=== PATIENT | female | born 1955 | race Caucasian/White ===

== ENCOUNTER 2017-07-31 20:41 | Emergency (ER) | payer OTHER ==
[2017-07-31 20:59] VITALS: BP 157/95; PULSE 64; TEMP 98.4; BMI 24.2
[2017-07-31] MEDS ORDERED: FLUORESCEIN NA 1 EA STRIP ONE (21:22)
[2017-07-31] MEDS ORDERED: TETRACAINE 0.5% OPHTH SOLN 2 ML BOTTLE ONE (21:22)
--- NOTE | 2017-07-31 21:32 | PDOC ---
History of Present Illness - General History Source: Patient Exam Limitations: No Limitations - History of Present Illness Initial Comments: 07/31/17 21:36 The patient is a 61 year old kyrgyz speaking female with no significant past medical history who presents to the emergency department today with left eye pain for 3 hours. The patient states that 3 hours ago she felt like she had something in her eye. Approximately 2 hours ago the patient flushed her eye. After persistent eye pain the patient called an ambulance 1 hour after attempting to flush her eye on her own. She reports feeling like there is dirt in her eye. <Harjinder Ziegler - Last Filed: 07/31/17 21:36> - General History Source: Patient <Rafael Ramsay - Last Filed: 08/01/17 19:48> - General Chief Complaint: Eye Problem Stated Complaint: EYE PROBLEM Time Seen by Provider: 07/31/17 21:29 Past History <Harjinder Ziegler - Last Filed: 07/31/17 21:36> - Suicide/Smoking/Psychosocial Hx Smoking History: Never smoked Have you smoked in the past 12 months: No Information on smoking cessation initiated: No Hx Alcohol Use: No Drug/Substance Use Hx: No <Rafael Ramsay - Last Filed: 08/01/17 19:48> - Past Medical History Allergies/Adverse Reactions: Allergies Allergy/AdvReac Type Severity Reaction Status Date / Time No Known Allergies Allergy Verified 07/31/17 22:08 Home Medications: Ambulatory Orders NK [No Known Home Medication] 07/31/17 Review of Systems - Review of Systems Able to Perform ROS?: Yes Comments:: 07/31/17 21:36 CONSTITUTIONAL: Absent: fever, no chills, no fatigue EYES: (+) Left eye irritation ENT: Absent: ear pain, no sore throat CARDIOVASCULAR: Absent: chest pain, no palpitations RESPIRATORY: Absent: cough, no SOB GI: Absent: abdominal pain, no nausea, no vomiting, no constipation, no diarrhea GENITOURINARY: Absent: dysuria, no frequency, no hematuria MUSCULOSKELETAL: Absent: back pain, no arthralgia, no myalgia SKIN: Absent: rash <Harjinder Ziegler - Last Filed: 07/31/17 21:36> *Physical Exam - Vital Signs Last Vital Signs Temp Pulse Resp BP Pulse Ox 98.4 F 64 20 157/95 96 07/31/17 20:47 07/31/17 20:47 07/31/17 20:47 07/31/17 20:47 07/31/17 20:47 - Physical Exam Comments: 07/31/17 21:36 GENERAL: Well-appearing, well-nourished. No apparent distress. HEENT: Normocephalic, atraumatic. PERRL, EOM intact. No fluorescein uptake, no chemosis , no erythema, no subconjunctival hemorrhage, no cell and flare, no foreign body seen CARDIOVASCULAR: Normal S1, S2. Regular rate and rhythm. PULMONARY: Clear to auscultation bilaterally. ABDOMEN: Soft, non-distended, non-tender. EXTREMITIES: Normal ROM in all four extremities. No gross deformities. SKIN: Warm, dry. No rash NEUROLOGICAL: No focal neurological deficits. <Harjinder Ziegler - Last Filed: 07/31/17 21:36> - Vital Signs Last Vital Signs Temp Pulse Resp BP Pulse Ox 98.4 F 64 20 157/95 96 07/31/17 20:47 07/31/17 20:47 07/31/17 20:47 07/31/17 20:47 07/31/17 20:47 <Rafael Ramsay - Last Filed: 08/01/17 19:48> Medical Decision Making - Medical Decision Making 08/01/17 19:48 Dr. Ramsay: The scribe's documentation has been prepared under my direction and personally reviewed by me in its entirery. I confirm that the note above accurately reflects all work, treatment, procedures, and medical decision making performed by me. <Rafael Ramsay - Last Filed: 08/01/17 19:48> *DC/Admit/Observation/Transfer - Attestations Scribe Attestion: 07/31/17 21:37 Documentation prepared by Harjinder Ziegler, acting as medical cost consultant for Rafael Ramsay DO. <Harjinder Ziegler - Last Filed: 07/31/17 21:36> - Discharge Dispostion Admit: No <Rafael Ramsay - Last Filed: 08/01/17 19:48> Diagnosis at time of Disposition: Eyelid pain of both eyes, Chemical exposure of eye - Discharge Dispostion Disposition: HOME Condition at time of disposition: Stable - Referrals Referrals: STAFF,NOT ON [Non Staff, Medical] - - Patient Instructions Printed Discharge Instructions: DI for Eye Pain Additional Instructions: Keep hands clean and flush eyes as needed for comfort. Follow up with your doctor as needed. Print Language: PERUVIAN - Post Discharge Activity
== END 2017-07-31 22:08 | disposition home or self-care (01) ==
LOC: SUPCPDRO 20:41 → JER 20:41
DX: H57.12 Ocular pain, left eye (principal)
CPT/HCPCS: 99282-25